=== PATIENT | male | born 1930 | race Caucasian/White ===

== ENCOUNTER 2018-03-06 17:13 | Observation (INO) | payer MEDICARE ==
--- NOTE | 2018-03-06 17:23 | ERPHSYRPT ---
- History of Present Illness Time Seen by Provider: 03/06/18 17:17 Source: family, EMS Exam Limitations: clinical condition Physician History: The patient is an 88-year-old male with his family brought in by ambulance from a local restaurant where he became completely unresponsive while eating. He was eating with his family, when he looked up to his son and said my face is numb. Within a few seconds he utered 2 words "my head" and then slumped over and was unresponsive. EMS crew noted he was breathing and had a pulse. He was unresponsive with the EMS crew. I discussed with the family that he likely has a stroke. The son tells me that the patient does not want any life-saving measures done if he should have any emergency type illness such as stroke or major heart attack. The family understands the gravity of the situation. He has no local doctor. He does all of his medical care at the [facility] in [place]. I do not know his past medical history at this time. Timing/Duration: today, hour(s) (15 min), sudden, worse Severity: severe Character of Deficits: other (unresponsive) Deficits: cannot stand, cannot walk (unresponsive) Baseline/Normal Cognition: alert oriented x 3 Current Cognition: poor alertness (completely unresponsive) Allergies/Adverse Reactions: No Known Drug Allergies Allergy (Verified 03/06/18 17:32) Home Medications: Unobtainable 03/06/18 [History] - Review of Systems Constitutional: Other (unresponsive) - Nursing Vital Signs Nursing Vital Signs: Initial Vital Signs Temperature 996.4 F 03/06/18 17:15 Pulse Rate 70 03/06/18 17:15 Respiratory Rate 16 03/06/18 17:15 Blood Pressure 192/93 03/06/18 17:15 O2 Sat by Pulse Oximetry 98 03/06/18 17:15 - [place] Coma Scale Best Eye Response ([place]): (1) no response Best Verbal Response ([place]): (1) no verbal response Best Motor Response ([place]): (1) no motor response [place] Total: 3 - Physical Exam General Appearance: severe distress Eye Exam: bilateral eye: other (pupils fixed and unresponsive to light. 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: abnormal gag reflex Skin Exam: normal color SpO2 Interpretation: normal Oxygen Delivery: Room Air - CT Exams Head CT Interpretation: Discussed w/radiologist (discussed with Dr Paez), Other ( large hemorrhage in cristóbal and midbrain.) Ordered Tests: Active Orders 24 hr Category Date Time Status Accucheck STAT Care 03/06/18 17:15 Active Chief School Finance Officer STAT Care 03/06/18 17:17 Active Catheter-[place] Cheng STAT Care 03/06/18 17:15 Active EKG-ER Only STAT Care 03/06/18 17:15 Active IV Insertion STAT Care 03/06/18 17:15 Active IV Insertion-2nd Peripheral STAT Care 03/06/18 17:15 Active HEAD WITHOUT CONTRAST [CT] Stat Exams 03/06/18 17:16 Taken BMP Stat Lab 03/06/18 17:20 Completed CBC W DIFF Stat Lab 03/06/18 17:20 Completed TROPONIN Q3H Lab 03/06/18 17:20 Completed TROPONIN Q3H Lab 03/06/18 20:30 Ordered TROPONIN Q3H Lab 03/06/18 23:30 Ordered TROPONIN Q3H Lab 03/07/18 02:30 Ordered TROPONIN Q3H Lab 03/07/18 05:30 Ordered Standby STAT RT 03/06/18 18:42 Completed Medication Summary Discontinued Medications Generic Name Dose Route Start Last Admin Trade Name Hollisq PRN Reason Stop Dose Admin Fentanyl Citrate 100 mcg 03/06/18 17:30 03/06/18 17:38 Sublimaze 100 Mcg/2 Ml IV 03/06/18 17:31 100 mcg STAT ONE Administration Fentanyl Citrate Confirm 03/06/18 17:36 Sublimaze 100 Mcg/2 Ml Administered 03/06/18 17:37 Dose 100 mcg .ROUTE .STK-MED ONE Lorazepam Confirm 03/06/18 17:25 Ativan 2 Mg/1 Ml Vial Administered 03/06/18 17:26 Dose 2 mg .ROUTE .STK-MED ONE Lorazepam 2 mg 03/06/18 17:28 03/06/18 17:39 Ativan 2 Mg/1 Ml Vial IV 03/06/18 17:29 2 mg STAT ONE Administration Ondansetron HCl Confirm 03/06/18 17:25 Zofran 4 Mg/2 Ml Vial Administered 03/06/18 17:26 Dose 4 mg .ROUTE .STK-MED ONE Ondansetron HCl 4 mg 03/06/18 17:28 03/06/18 17:39 Zofran 4 Mg/2 Ml Vial IV 03/06/18 17:29 4 mg STAT ONE Administration Lab/Rad Data: Laboratory Result Diagrams 03/06/18 17:20 03/06/18 17:20 Laboratory Results 03/06/18 03/06/18 03/06/18 Range/Units 17:20 17:20 17:20 WBC 10.9 H (4.0-10.5) K/mm3 RBC 5.10 (4.1-5.6) M/mm3 Hgb 15.7 (12.5-18.0) gm/dl Hct 46.6 (42-50) % MCV 91.4 (78-100) fl MCH 30.8 (26-32) pg MCHC 33.7 (32-36) g/dl RDW 16.0 H (11.5-14.0) % Plt Count 234 (150-450) K/mm3 MPV 10.0 H (6-9.5) fl Gran % 61.1 (36.0-66.0) % Eos # (Auto) 0.22 (0-0.5) Absolute Lymphs (auto) 2.73 (1.0-4.6) Absolute Monos (auto) 1.25 (0.0-1.3) Lymphocytes % 25.1 (24.0-44.0) % Monocytes % 11.5 (0.0-12.0) % Eosinophils % 2.0 (0.00-5.0) % Basophils % 0.3 (0.0-0.4) % Absolute Granulocytes 6.64 (1.4-6.9) Basophils # 0.03 (0-0.4) Sodium 139 (137-145) mmol/L Potassium 4.8 (3.5-5.1) mmol/L Chloride 104 (98-107) mmol/L Carbon Dioxide 22 (22-30) mmol/L Anion Gap 17.3 H (5-15) MEQ/L BUN 23 H (9-20) mg/dL Creatinine 1.13 (0.66-1.25) mg/dL Estimated GFR > 60.0 ML/MIN Glucose 98 (74-106) mg/dL Calcium 9.8 (8.4-10.2) mg/dL Troponin I < 0.012 (0.000-0.034) ng/mL - Progress Progress: re-examined (worse) Progress Note: 03/06/18 17:33 The patient has been completely comatose with a GCS of 3. He began having apparent seizure-like signs. He was given Ativan 2 mg and Zofran 4 mg by IV. The patient still has some involuntary muscle contractions. The patient was given fentanyl 100 g by IV. 03/06/18 18:17 Pt has agonal breathing. Radiology called to let me know pt has large brain stem hemorrhage. 03/06/18 19:05 I discussed pt with family and Dr Bhandari. Pt to be admitted for comfort care. Pt is DNR and is in agonal breathing. Discussed with : Thony Counseled pt/family regarding: diagnosis, rad results - Departure Time of Disposition: 19:07 Departure Disposition: Observation (observation per Dr Bhandari) Clinical Impression: Hemorrhagic stroke Condition: Poor Critical Care Time: No Referrals: Provider,Unknown [Primary Care Provider] -
[2018-03-06] MEDS ORDERED: Ativan 2 MG/1 ML VIAL ONE (17:25)
[2018-03-06] MEDS ORDERED: Zofran 4 MG/2 ML VIAL ONE (17:25)
[2018-03-06] MEDS ORDERED: Zofran 4 MG/2 ML VIAL IV ONE (17:28)
[2018-03-06] MEDS ORDERED: Ativan 2 MG/1 ML VIAL IV ONE (17:28)
[2018-03-06 17:29] LABS: BASOPHIL % 0.3 % (0.0-0.4); Basophil (Absolute #) 0.03 (0-0.4); Eosinophil (Absolute #) 0.22 (0-0.5); Granulocyte Absolute (ANC) 6.64 (1.4-6.9); Granulocytes % 61.1 % (36.0-66.0); Hematocrit 46.6 % (42-50); Hemoglobin 15.7 gm/dl (12.5-18.0); Lymphocyte (Absolute #) 2.73 (1.0-4.6); Lymphocytes % 25.1 % (24.0-44.0); Mean Cell Volume 91.4 fl (78-100); Mean Corpuscular Hemoglobin 30.8 pg (26-32); Mean Corpuscular Hgb Concent. 33.7 g/dl (32-36); Monocyte (Absolute #) 1.25 (0.0-1.3); Monocytes % 11.5 % (0.0-12.0); Platelet Count 234 K/mm3 (150-450); White Blood Count 10.9 K/mm3 (4.0-10.5)
[2018-03-06] MEDS ORDERED: SUBLIMAZE 100 MCG/2 ML IV ONE (17:30)
[2018-03-06] MEDS ORDERED: SUBLIMAZE 100 MCG/2 ML ONE ×2 (17:36→19:19)
[2018-03-06 17:59] LABS: ANION GAP 17.3 MEQ/L (5-15); BLOOD UREA NITROGEN 23 mg/dL (9-20); CHLORIDE 104 mmol/L (98-107); Calcium 9.8 mg/dL (8.4-10.2); Carbon Dioxide 22 mmol/L (22-30); Creatinine 1 1.13 mg/dL (0.66-1.25); Glucose 98 mg/dL (74-106); Potassium 4.8 mmol/L (3.5-5.1); SODIUM 139 mmol/L (137-145)
[2018-03-06] MEDS: MORPHINE SULFATE 4 MG INJ IV PRN ×2 (20:56→23:48)
--- NOTE | 2018-03-06 21:30 | XRAY ---
Indication: Unresponsive. Possible stroke and/or seizure. Multiple contiguous axial images obtained through the head without contrast. Comparison: None There is acute parenchymal hemorrhage involving the brainstem with mass effect on the fourth ventricle. Subsequent mild hydrocephalus of the third and lateral ventricles. Elsewhere age-related global atrophy and moderate periventricular degenerative micro-ischemia. Right basal ganglia remote lacunar infarct. Bony calvarium intact. Partial opacification of the inferior right mastoid air cells. Visualized paranasal sinuses are clear. Impression: 1. Brainstem acute parenchymal hemorrhage with mass effect on the fourth ventricle and subsequent noncommunicating hydrocephalus. 2. Normal aging brain including atrophy and degenerative micro-ischemia. 3. Right basal ganglia remote lacunar infarct. 4. Partial opacification of the right mastoid air cells, presumed inflammatory. Comment: Preliminary interpretation was made by [facility]. No critical discrepancy. CTDI 59.13
[2018-03-07] MEDS ORDERED: Sodium Chloride 0.9% 10 ML FLUSH Syringe IV PRN (01:48)
[2018-03-07 07:16] VITALS: BP 69/36; PULSE 56; O2SAT 97
--- NOTE | 2018-03-07 10:32 | PCM.HP ---
History of Present Illness - Chief Complaint Chief Complaint: hemorrhagic stroke History of Present Illness: is a 88 [facility] who was admitted through the ER last night with hemorrhagic stroke of the brainstem. He was eating at [employer] and he said, "my face is numb" then said, "my head" then went unresponsive. He has apparently been to [facility] in the past but it has been years as there is no information in the current EMR. No medical history available from the family; they did not know the patient's date of in the ER. has some dementia and son may be mentally challenged. In the ER pt was noted to have absent corneal reflexes. Overnight his temp was elevated to 100. Initially his BP was over 200 systolic, but the most recent bp is 69 systolic. - Review of Systems All Other Systems: Unable due to condition Medications & Allergies Home Medications: Home Medication List Unobtainable 03/06/18 [History Confirmed 03/06/18] Allergies/Adverse Reactions: Allergies Allergy/AdvReac Type Severity Reaction Status Date / Time No Known Drug Allergies Allergy Verified 03/06/18 17:32 - Past Medical History Past Medical History: Yes ENT History: Macular Degeneration Respiratory History: No Pertinent History Endocrine Medical History: No Pertinent History Musculoskelatal History: No Pertinent History GI Medical History: No Pertinent History History: No Pertinent History Pyscho-Social History: No Pertinent History Male Reproductive Disorders: No Pertinent History - Past Surgical History Past Surgical History: Yes (unsure) Cardiac History: No Pertinent History Respiratory Surgery: No Pertinent History GI Surgical History: No Pertinent History Genitourinary Surgical Hx: No Pertinent History Musculskeletal Surgical Hx: No Pertinent History Male Surgical History: No Pertinent History - Social History Smoking Status: Never smoker Exposure to second hand smoke: No Alcohol: None Drug Use: none - Physical Exam Vital Signs: Vital Signs - 24 hr Temp Pulse Resp BP Pulse Ox 03/07/18 08:00 26 H 03/07/18 07:15 100.4 F 56 L 26 H 69/36 97 03/07/18 04:00 18 03/07/18 03:59 98.7 F 57 L 18 86/51 98 03/07/18 00:03 100.4 F 78 28 H 144/66 100 03/06/18 23:57 28 H 03/06/18 21:50 99 03/06/18 21:03 99.8 F 100 H 24 202/101 99 03/06/18 19:50 100 F 84 24 130/76 100 03/06/18 19:10 84 26 H 150/79 99 03/06/18 17:35 72 16 199/109 98 03/06/18 17:20 67 16 181/93 03/06/18 17:15 996.4 F 70 16 192/93 98 Oxygen-Last 24 hours O2 Percentage 100% O2 Percentage 100% O2 Percentage 100% O2 Percentage 100% O2 Percentage 100% O2 Percentage 100% General Appearance: other (unresponsive.) Neurologic Exam: other (absent pupil reflexes) Respiratory Exam: other (somewhat irregular breathing) Cardiovascular Exam: No normal heart sounds (distant) Gastrointestinal/Abdomen Exam: soft, No distention, No mass Extremity Exam: normal inspection, No swelling Results - Labs Lab/Micro Results: Accuchecks Accucheck Value: 94 Lab Results-Last 24 Hours 03/06/18 03/06/18 03/06/18 Range/Units 17:20 17:20 17:20 WBC 10.9 H (4.0-10.5) K/mm3 RBC 5.10 (4.1-5.6) M/mm3 Hgb 15.7 (12.5-18.0) gm/dl Hct 46.6 (42-50) % MCV 91.4 (78-100) fl MCH 30.8 (26-32) pg MCHC 33.7 (32-36) g/dl RDW 16.0 H (11.5-14.0) % Plt Count 234 (150-450) K/mm3 MPV 10.0 H (6-9.5) fl Gran % 61.1 (36.0-66.0) % Eos # (Auto) 0.22 (0-0.5) Absolute Lymphs (auto) 2.73 (1.0-4.6) Absolute Monos (auto) 1.25 (0.0-1.3) Lymphocytes % 25.1 (24.0-44.0) % Monocytes % 11.5 (0.0-12.0) % Eosinophils % 2.0 (0.00-5.0) % Basophils % 0.3 (0.0-0.4) % Absolute Granulocytes 6.64 (1.4-6.9) Basophils # 0.03 (0-0.4) Sodium 139 (137-145) mmol/L Potassium 4.8 (3.5-5.1) mmol/L Chloride 104 (98-107) mmol/L Carbon Dioxide 22 (22-30) mmol/L Anion Gap 17.3 H (5-15) MEQ/L BUN 23 H (9-20) mg/dL Creatinine 1.13 (0.66-1.25) mg/dL Estimated GFR > 60.0 ML/MIN Glucose 98 (74-106) mg/dL Calcium 9.8 (8.4-10.2) mg/dL Troponin I < 0.012 (0.000-0.034) ng/mL Accuchecks Accucheck Value: 94 - Radiology Impressions Radiology Exams & Impressions: Radiology Procedures Category Date Time Status HEAD WITHOUT CONTRAST [CT] Stat Exams 03/06/18 17:16 Completed - Other Procedures and Tests Respiratory Therapy 03/06/18 20:44 Oxygen NON-REBREATHER 15% Assessment/Plan (1) Hemorrhagic stroke Current Visit: Yes Status: Acute Assessment & Plan: I anticipate that pt will only survive hours, if that long. Discussed with the family, and they are aware. Would certainly want pt to be comfortable at all times, but to all appearances he is completely unresponsive and not in any pain. Code(s): I61.9 - NONTRAUMATIC INTRACEREBRAL HEMORRHAGE, UNSPECIFIED
--- NOTE | 2018-03-07 11:20 | PCM.DS ---
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 Found to have hemorrhagic stroke in brainstem. Was unresponsive from the time he reached the ER, including no corneal reflexes. He continued breathing and was admitted to the floor. I saw him this morning and advised family his passing would probably be within hours. He within 30 minutes of my examination. - Vitals & Intake/Output Vital Signs: Vital Signs Temperature 100.4 F 03/07/18 07:15 Pulse Rate 56 L 03/07/18 07:15 Respiratory Rate 26 H 03/07/18 08:00 Blood Pressure 69/36 03/07/18 07:15 O2 Sat by Pulse Oximetry 97 03/07/18 07:15 Oxygen-Last Documented O2 Percentage 100% Intake & Output: Intake & Output 03/04/18 03/05/18 03/06/18 03/07/18 11:59 11:59 11:59 11:59 Intake Total 0 Output Total 1500 Balance -1500 Weight 71.6 kg - Lab Result Diagrams: 03/06/18 17:20 03/06/18 17:20 Lab Results-Last 24 Hrs: Accuchecks Accucheck Value: 94 Lab Results-Last 24 Hours 03/06/18 03/06/18 03/06/18 Range/Units 17:20 17:20 17:20 WBC 10.9 H (4.0-10.5) K/mm3 RBC 5.10 (4.1-5.6) M/mm3 Hgb 15.7 (12.5-18.0) gm/dl Hct 46.6 (42-50) % MCV 91.4 (78-100) fl MCH 30.8 (26-32) pg MCHC 33.7 (32-36) g/dl RDW 16.0 H (11.5-14.0) % Plt Count 234 (150-450) K/mm3 MPV 10.0 H (6-9.5) fl Gran % 61.1 (36.0-66.0) % Eos # (Auto) 0.22 (0-0.5) Absolute Lymphs (auto) 2.73 (1.0-4.6) Absolute Monos (auto) 1.25 (0.0-1.3) Lymphocytes % 25.1 (24.0-44.0) % Monocytes % 11.5 (0.0-12.0) % Eosinophils % 2.0 (0.00-5.0) % Basophils % 0.3 (0.0-0.4) % Absolute Granulocytes 6.64 (1.4-6.9) Basophils # 0.03 (0-0.4) Sodium 139 (137-145) mmol/L Potassium 4.8 (3.5-5.1) mmol/L Chloride 104 (98-107) mmol/L Carbon Dioxide 22 (22-30) mmol/L Anion Gap 17.3 H (5-15) MEQ/L BUN 23 H (9-20) mg/dL Creatinine 1.13 (0.66-1.25) mg/dL Estimated GFR > 60.0 ML/MIN Glucose 98 (74-106) mg/dL Calcium 9.8 (8.4-10.2) mg/dL Troponin I < 0.012 (0.000-0.034) ng/mL Micro Results-Entire Visit: Accuchecks Accucheck Value: 94 - Radiology Exams Ordered Rad Exams-Entire Visit: Radiology Procedures Category Date Time Status HEAD WITHOUT CONTRAST [CT] Stat Exams 03/06/18 17:16 Completed - Procedures and Test Procedures and Tests throughout Hospitalization: Therapy Orders & Screens 03/06/18 18:42 Standby STAT Comment: 03/06/18 20:44 Oxygen NON-REBREATHER 15% Comment: 03/06/18 21:21 ST Screen per Nursing Assess once Comment: Protocol Order Physician Instructions: Greater than [address] Admission Screening Reason For Exam: Triggered on Admission Diagnosis: hemorrhagic stroke CVA/Dyshpagia/Aphasia: Yes Cognitive Deficits: Yes Dehydration/Nutrition Deficit: No Reflux: No Oral-Motor Difficulties: No Pneumonia: No [facility] Resident: No Total Points: 8 Discharge Exam General Appearance: other (pt is ) Final Diagnosis/Problem List - Final Discharge Diagnosis/Problem (1) Hemorrhagic stroke Current Visit: Yes Status: Acute Assessment & Plan: Pt . OK to release body. - Discharge Disposition: Condition: Prescriptions: No Action Unobtainable Follow up with: Provider,Unknown [Primary Care Provider] - 1 Week
== END 2018-03-07 10:42 | disposition expired ==
LOC: ED 17:13 → MED SURG 20:37 → MERGE 20:37
PROVIDERS: ADMIT Family Medicine; ATTEND Family Medicine
DX: I61.9 Nontraumatic intracerebral hemorrhage, unspecified (principal)
CPT/HCPCS: 36000; 36415; 51702; 70450; 80048; 82962; 84484; 85025; 93005; 93041; 94760; 94799; 96374; 96375; 99285; G0378; J2060; J2270; J2405; J3010